=== PATIENT | female | born 1990 | race Caucasian/White ===

== ENCOUNTER 2019-04-12 20:02 | Emergency (ER) | payer BC ==
[~2019-04-12] VITALS: Ht 152.4 cm; Wt 80.3 kg
[2019-04-12 20:02] VITALS: BP_SYST 143
--- NOTE | 2019-04-12 20:08 | NUR ---
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 Pt c/o SOB, uncontrolled shaking of BHA, hottness to feet and dry mouth. states that she was discharged from [facility] 2 hours DECK CADET s/p C-Sxn delivery on 04/07/19 r/t failure of induction. Pt states that after Sx her B/P was high and she was tx with Magnesium Sulfate x 1 week. Pt AAO x 4, respirations even and non-labored, BBS clear, SPO2 98% RA. Report given to [place].
--- NOTE | 2019-04-12 20:11 | NUR ---
Pt is a 29 y/o female, pospartum since 04/06/19 w/ , who presents to ED w/ c/o sudden episodic sob, numbness/tingling, and clammy hands for the pas few days. Pt reports feeling anxious, shaky, and sob while she was out for dinner. It comes and goes and and last for 5 minutes. Denies any alleviating factors. SHe was [facility]arged from [facility] at 5 pm today after being admitted for a week for BP being elevated. Per , pt has been anxious during the past few days. Denies any fever, chills, n/v, chest pain, headache, or any other complaints. Pt currently takes Procardia. Will cont to monitor.
--- NOTE | 2019-04-12 20:30 | NUR ---
ER Dr. Rivas at bedside examining patient.
[2019-04-12] MEDS ORDERED: LORazepam 2 MG/ML VIAL (FOR ER USE) IM ONE (21:30)
[2019-04-12 22:56] VITALS: BP_SYST 143
--- NOTE | 2019-04-12 22:56 | NUR ---
Patient given written and verbal discharge instructions and verbalizes understanding. ER MD Dr. Rivas discussed with patient the results and treatment provided. Patient in stable condition. ID arm band removed. Rx of Xanax given. Patient educated on pain management and to follow up with PMD. Pain Scale 0/10. Opportunity for questions provided and answered. Medication side effect fact sheet provided.
== END 2019-04-12 22:56 | disposition home or self-care (01) ==
LOC: SED 20:02
DX: O90.89 Other complications of the puerperium, not elsewhere classified (principal); F41.9 Anxiety disorder, unspecified; R03.0 Elevated blood-pressure reading, without diagnosis of hypertension
CPT/HCPCS: 99283; J2060; 99284